=== PATIENT | female | born 1985 ===

== ENCOUNTER → 2022-02-14 | Day surgery (SDC) | payer OTHER ==
[~2022-02-14] VITALS: Ht 162.6 cm; Wt 88.5 kg
[~2022-02-14] MED LIST: BRIN20TA PO; BUSPAR5 MG PO; WELLBUTRIN SR150 MG PO
[2022-02-14 10:24] LABS: HCG (URINE) SCREEN NEGATIVE (NEGATIVE)
[2022-02-14 11:02] LABS: BASOPHIL 0.5 % (0-2); EOSINOPHIL 1.1 % (0-5); HCT 36.8 % (37.0-47.0); HGB 12.3 g/dl (12.5-16.0); LYMPHOCYTE 24.8 % (15-48); MCH 31.8 pg (25.0-31.0); MCHC 33.4 g/dL (32.0-36.0); MCV 95.1 fL (78.0-100.0); MONOCYTE 6.2 % (0-12); MPV 10.2 fL (6.0-9.5); NEUTROPHIL 67.1 % (41-80); NRBC 0; PLT 359 K/uL (150-400); RBC 3.87 M/uL (4.20-5.40); RDW 12.7 % (11.5-14.0); WBC 8.8 K/uL (4.0-10.5)
== END | disposition home or self-care (01) ==
LOC: FAS 09:23
PROVIDERS: Oral & Maxillofacial Surgery
DX: K02.9 Dental caries, unspecified (principal); K04.7 Periapical abscess without sinus; F41.9 Anxiety disorder, unspecified; F17.290 Nicotine dependence, other tobacco product, uncomplicated
CPT/HCPCS: D7210; D7310; 36415; 84703; 85025; J1100; J1885; J2250; J2405; J2704; J7120